=== PATIENT | female | born 1945 | race Caucasian/White ===

== ENCOUNTER 2020-03-23 03:52 | Emergency (ER) | payer MEDICARE, OTHER ==
[~2020-03-23] VITALS: Ht 165.1 cm; Wt 121.6 kg
--- NOTE | 2020-03-23 04:00 | NUR ---
BIB FROM HOME C/O HEADACHE. PER RA, PT C/O HIGH BP READING AT HOME. PT DENIES CP, SOB, NAUSEA, VOMITTING, DIZZINESS. PT AAOX4. VITAL SIGNS STABLE. RESPIRATIONS EVEN AND UNLABORED. SKIN WARM AND INTACT. NO ACUTE DISTRESS NOTED AT THIS TIME. WILL CONTINUE TO MONITOR
[2020-03-23] MEDS ORDERED: IBUPROFEN 600 MG TABLET PO ONE ×2 (04:09→04:30)
[2020-03-23 04:57] VITALS: BP 154/90
--- NOTE | 2020-03-23 04:57 | NUR ---
Patient discharged to home in stable condition. Written and verbal after care instructions given. Patient verbalizes understanding of instruction.Pt ambulatory with a steady gait
== END 2020-03-23 04:59 | disposition home or self-care (01) ==
LOC: ER 03:57
DX: I10 Essential (primary) hypertension (principal); R51 Headache; R94.31 Abnormal electrocardiogram [ECG] [EKG]; K21.9 Gastro-esophageal reflux disease without esophagitis; E11.9 Type 2 diabetes mellitus without complications